=== PATIENT | male | born 1960 | race Hispanic/Latino ===

== ENCOUNTER → 2021-06-11 | Outpatient (CLI) | payer BC | LOC: RAD 14:06 | PROVIDERS: ATTEND Internal Medicine | DX: M17.12 Unilateral primary osteoarthritis, left knee (principal) ==

== ENCOUNTER → 2021-07-27 | Outpatient (CLI) | payer BC | LOC: MRI 11:45 | PROVIDERS: ATTEND Internal Medicine | DX: S83.204D Other tear of unspecified meniscus, current injury, left knee, subsequent encounter (principal) ==

== ENCOUNTER 2024-04-02 19:03 | Emergency (ER) | payer BC ==
[~2024-04-02] VITALS: Ht 167.6 cm; Wt 99.8 kg
[2024-04-02 19:11] VITALS: TEMP 97.8
[2024-04-02] MEDS ORDERED: PREDNISONE20 MG PO (20:58)
[2024-04-02 21:00] VITALS: PULSE 66; RESP 20; O2SAT 100
== END 2024-04-02 21:09 | disposition home or self-care (01) ==
LOC: ER 19:18
DX: M25.511 Pain in right shoulder (principal); M75.41 Impingement syndrome of right shoulder; M48.02 Spinal stenosis, cervical region; X50.9XXA Other and unspecified overexertion or strenuous movements or postures, initial encounter; I10 Essential (primary) hypertension; E78.5 Hyperlipidemia, unspecified
CPT/HCPCS: 70450; 72125; 99283